=== PATIENT | female | born 1985 | race Caucasian/White ===

== ENCOUNTER 2016-04-09 12:07 | Emergency (ER) | payer MEDICAID, OTHER ==
[2016-04-09 14:04] VITALS: BP 115/88
[2016-04-09] MEDS ORDERED: Fluorescein Sodium TOPICAL* 1 MG TEST ONE (14:05)
[2016-04-09] MEDS ORDERED: BSS OPTH.SOL* BTL ONE (14:06)
[2016-04-09] MEDS ORDERED: Tetracaine 0.5% OPTH.SOL 4 ML* 1 DROP BTL ONE (14:06)
--- NOTE | 2016-04-09 14:43 | UC ---
Eye Complaint HPI - HPI Summary HPI Summary: 30 female presents today wearing sunglasses with bilateral eye irritation and burning that started approximately 2 weeks ago. Patient states she was seen in [facility] for what she believed to be pink eye. She was treated for pink eye with eye drops that she can not remember the name of. She states her eyes did not improve and the drops caused her to have a crusty discharge on her eyelashes. That has no resolved and her main complaint is burning of both eyes, redness, swelling and tenderness. Patient states over the past day or 2 she has been experiencing some blurry vision even when wearing her glasses. 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 She complains of light sensitivity. She has not had any visual loss. She has tried using OTC "clear eyes" for the past few days but has not had any relief. Denies any substance splashing into her eyes, burning, foreign body and anything getting into her eye such as lotions, soaps etc. She does not think she has been exposed to smoke. She denies itching, fever, chills, congestion, cough, purulent discharge, difficulty breathing and chest pain. - History of Current Complaint Chief Complaint: UCEye Stated Complaint: EYE COMPLAINT,SKIN COMPLAINT Time Seen by Provider: 04/09/16 14:22 Hx Obtained From: Patient Hx Last Menstrual Period: 03/14/16 ?: No Onset/Duration: Sudden Onset, Lasting Weeks - 2 weeks ago, Worse Since Timing: Constant Severity Initially: Mild Severity Currently: Moderate Pain Intensity: 8 Pain Scale Used: 0-10 Numeric Location of Injury: Conjunctiva, Eye Lid (lower), Eye Lid (upper), Sclera Character: Throbbing Aggravating Factor(s): Light Alleviating Factor(s): Nothing Associated Signs And Symptoms: Positive: Photophobia - bilateral, Drainage ( Clear) - bilateral, Vision Impairment Bilateral - no vision loss just some blurry vision, Swelling Related History: Meds/Drops Used: - antiobiotic drops and clear eyes OTC mosturizing drops - Allergies/Home Medications Allergies/Adverse Reactions: Allergies Allergy/AdvReac Type Severity Reaction Status Date / Time Tramadol Allergy Intermediate Rash Verified 04/09/16 13:57 PMH/Surg Hx/FS Hx/Imm Hx Endocrine History Of: Reports: Diabetes - diet controlled Cardiovascular History Of: Denies: Cardiac Disorders, Hypertension, Pacemaker/ICD, Myocardial Infarction , Congestive Heart Failure, Atrial Fibrillation, Deep Vein Thrombosis, Bleeding Disorders Respiratory History Of: Denies: COPD, Asthma, Bronchitis, Pneumonia, Pulmonary Embolism GI/ History Of: Denies: Gastroesophageal Reflux, Ulcer, Gastrointestinal Bleed, Gall Bladder Disease, Kidney Stones, Diverticulitis, Renal Disease, Urosepsis Neurological History Of: Denies: TIA, CVA, Dementia, Seizures, Migraine Psychological History Of: Reports: Anxiety - Surgical History Surgical History: Yes Surgery Procedure, Year, and Place: TUBAL LIGATION - Family History Known Family History: Positive: Other - Denies FMH of carpal tunnel - Social History Alcohol Use: Occasionally Substance Use Type: None Smoking Status (MU): Heavy Every Day Tobacco Smoker Type: Cigarettes Amount Used/How Often: 1 ppd Length of Time of Smoking/Using Tobacco: 16 YRS Have You Smoked in the Last Year: Yes - Immunization History Most Recent Influenza Vaccination: Fall 2014 Review of Systems Constitutional: Negative Skin: Negative Eyes: Blurred Vision, Drainage - clear, teary, Eye Redness - b/l, Photophobia - bilateral Respiratory: Negative Cardiovascular: Negative Gastrointestinal: Negative Genitourinary: Negative Motor: Negative Neurovascular: Negative Musculoskeletal: Negative Neurological: Headache Psychological: Negative All Other Systems Reviewed And Are Negative: Yes Physical Exam Triage Information Reviewed: Yes Appearance: Well-Appearing, Well-Nourished, Pain Distress - with sun glasses on and lights off Vital Signs: Initial Vital Signs Temp 97.7 F 04/09/16 13:58 Pulse 72 04/09/16 13:58 Resp 16 04/09/16 13:58 BP 115/88 04/09/16 13:58 Pulse Ox 100 04/09/16 13:58 Vital Signs Reviewed: Yes Eyes: Positive: Conjunctiva Inflamed, Discharge - clear, teary eyed, Other: - bilateral mild erythema, minimal swelling around orbits with some erythema, tender on palpation. no signs of foreign body. denied sensation of FB. some cobblestoning noted bilateral conjunctiva/ lower lids. PERRLA b/l. EOM intact and visual chen. fundoscopic exam done, no papilladema or hemorrhage noted. ENT Exam: Normal Neck: Positive: Supple, Nontender, No Lymphadenopathy Respiratory: Positive: Chest non-tender, Lungs clear, Normal breath sounds Cardiovascular: Positive: RRR, No Murmur, Pulses Normal Musculoskeletal Exam: Normal Neurological Exam: Normal Psychological Exam: Normal Skin Exam: Normal Eye Complaint Course/Dx - Course Course Of Treatment: appropriate physical exam was preformed. fluorescien stain did not seem appropriate at this time. she was instructed to stop using current OTC drops if there has been no relief. make an appointment with opthamologist - Differential Dx/Diagnosis Differential Diagnosis/HQI/PQRI: Conjunctivitis, Corneal Abrasion, Foreign Body , Orbital Cellulitis, Uveitis Provider Diagnoses: allergic conjunctivitis bilateral Discharge - Discharge Plan Condition: Stable Disposition: HOME Prescriptions: Olopatadine 0.1% OPHTH (NF) [Patanol 0.1% OPHTH (NF)] 1 drop BOTH EYES BID #1 btl Patient Education Materials: Conjunctivitis (ED) Forms: *Work Release Referrals: Anitha Best MD [Primary Care Provider] - Additional Instructions: Use drops as prescribed. You may also want to get Vasacon-A OTC eye drops to help. Please make an appointment with your eye doctor. If symptoms worsen, you experience loss of vision or do not improve please return to . Rest eyes and continue wearing sunglasses as needed for light sensitivity. You may continue use of ibuprofen as needed for pain.
== END 2016-04-09 15:02 | disposition home or self-care (01) ==
LOC: UCCORT 12:07
DX: H10.13 Acute atopic conjunctivitis, bilateral (principal); Z88.1 Allergy status to other antibiotic agents; F17.210 Nicotine dependence, cigarettes, uncomplicated
CPT/HCPCS: 99212; A9270-GY; G0463

== ENCOUNTER 2016-07-01 17:24 | Emergency (ER) | payer OTHER ==
[2016-07-01 18:42] VITALS: BP 104/67
[2016-07-01] MEDS ORDERED: HYDROcodone/ACETAMIN 5-325 MG* 1 TAB PO ONE (19:13)
[2016-07-01] MEDS ORDERED: predniSONE TAB* 20 MG PO ONE (19:14)
--- NOTE | 2016-07-01 19:23 | UC ---
Upper Extremity HPI - HPI Summary HPI Summary: More than 10 years ago was dx with carpal tunnel by Dr. Best. When it gets bad , she usually uses wrist braces. Typical symptoms are numbness, tingling, and nighttime worsening in the usual distribution. 2 days ago developed significant pain and swelling in both hands along with numbness and tingling, has never had so much pain before. Called into work today, stayed in bed all day from pain. - History of Current Complaint Stated Complaint: HANDS SWOLLEN Time Seen by Provider: 07/01/16 18:34 Hx Obtained From: Patient Hx Last Menstrual Period: 06/05/16 ?: No Onset/Duration: Gradual Onset, Lasting Days Severity Initially: Moderate Severity Currently: Severe Location Of Pain: Is Diffuse Character: Aching, Throbbing, Stiffness Aggravating Factor(s): Movement Alleviating Factor(s): Nothing Associated Signs And Symptoms: Positive: Swelling, Redness - Allergies/Home Medications Allergies/Adverse Reactions: Allergies Allergy/AdvReac Type Severity Reaction Status Date / Time Tramadol Allergy Intermediate Rash Verified 07/01/16 18:34 PMH/Surg Hx/FS Hx/Imm Hx Endocrine History Of: Reports: Diabetes - diet controlled Cardiovascular History Of: Denies: Cardiac Disorders, Hypertension, Pacemaker/ICD, Myocardial Infarction , Congestive Heart Failure, Atrial Fibrillation, Deep Vein Thrombosis, Bleeding Disorders Respiratory History Of: Denies: COPD, Asthma, Bronchitis, Pneumonia, Pulmonary Embolism GI/ History Of: Denies: Gastroesophageal Reflux, Ulcer, Gastrointestinal Bleed, Gall Bladder Disease, Kidney Stones, Diverticulitis, Renal Disease, Urosepsis Neurological History Of: Denies: TIA, CVA, Dementia, Seizures, Migraine Psychological History Of: Reports: Anxiety - Surgical History Surgical History: Yes Surgery Procedure, Year, and Place: TUBAL LIGATION - Family History Known Family History: Positive: Other - Denies FMH of carpal tunnel - Social History Occupation: Employed Full-time - [employer] Alcohol Use: Occasionally Substance Use Type: None Smoking Status (MU): Heavy Every Day Tobacco Smoker Type: Cigarettes Amount Used/How Often: 1 ppd Length of Time of Smoking/Using Tobacco: 16 YRS Have You Smoked in the Last Year: Yes Household Exposure Type: Cigarettes - Immunization History Most Recent Influenza Vaccination: Fall 2014 Review of Systems Constitutional: Negative Skin: Negative Eyes: Negative ENT: Negative Respiratory: Negative Cardiovascular: Negative Gastrointestinal: Negative Genitourinary: Negative Motor: Negative Neurovascular: Negative Musculoskeletal: Arthralgia, Decreased ROM Neurological: Negative Psychological: Negative All Other Systems Reviewed And Are Negative: Yes Physical Exam Triage Information Reviewed: Yes Appearance: Well-Appearing, Pain Distress - moderate -- tearful on exam, unable to move hands Vital Signs: Initial Vital Signs Temp 98.4 F 07/01/16 18:35 Pulse 94 07/01/16 18:35 Resp 18 07/01/16 18:35 BP 104/67 07/01/16 18:35 Pulse Ox 100 07/01/16 18:35 Vital Signs Reviewed: Yes Eye Exam: Normal Eyes: Positive: Conjunctiva Clear ENT Exam: Normal ENT: Positive: Normal ENT inspection, Hearing grossly normal, Pharynx normal, TMs normal Dental Exam: Normal Neck exam: Normal Neck: Positive: Supple, Nontender, No Lymphadenopathy Respiratory Exam: Normal Respiratory: Positive: Chest non-tender, Lungs clear, Normal breath sounds, No respiratory distress, No accessory muscle use Cardiovascular Exam: Normal Cardiovascular: Positive: RRR, No Murmur Musculoskeletal Exam: Other - bilat hands appear slightly swollen, joints red and swollen Musculoskeletal: Positive: Strength Limited @ - bilat hands, limited by pain, ROM Limited @ - bilat hands Neurological Exam: Normal Neurological: Positive: Alert Psychological Exam: Normal Upper Extremity Course/Dx - Differential Dx/Diagnosis Provider Diagnoses: Bilat hand arthritis. BUE carpal tunnel syndrome Discharge - Discharge Plan Condition: Stable Disposition: HOME Prescriptions: predniSONE TAB* [Deltasone TAB*] 10 mg PO DAILY #45 tab Patient Education Materials: Paresthesia (ED), Arthritis (ED) Forms: *Work Release Referrals: Anitha Best MD [Primary Care Provider] - As Soon As Possible Additional Instructions: As we discussed, your numbness and tingling are common for carpal tunnel. However, your pain, swelling, and distribution of symptoms look much more like an inflammatory arthritis. The most common cause would be an autoimmune condition such as rheumatoid arthritis. You will need further testing by your primary care office to help determine why you are in so much pain. In the mean time, the prednisone should help bring the pain down quickly.
== END 2016-07-01 19:33 | disposition home or self-care (01) ==
LOC: UCCORT 17:24
DX: M19.042 Primary osteoarthritis, left hand (principal); M19.041 Primary osteoarthritis, right hand; G56.03 Carpal tunnel syndrome, bilateral upper limbs; E11.9 Type 2 diabetes mellitus without complications; F41.9 Anxiety disorder, unspecified; Z88.5 Allergy status to narcotic agent; F17.210 Nicotine dependence, cigarettes, uncomplicated
CPT/HCPCS: 99212; G0463; J7512

== ENCOUNTER 2018-08-19 10:01 | Day surgery (SDC) | payer OTHER ==
[~2018-08-19 10:01] MED LIST: Buffered Lidocaine 1% SYRIN* 1 ML/SYRINGE INTRADERM ONE; Lactated Ringers 1000 ML Bag* 1,000 ML IV SCH
[2018-08-19] MEDS ORDERED: fentaNYL* 50 MCG/ML 2 ML VIAL (100 MCG VIAL) ONE ×2 (10:26→11:32)
[2018-08-19] MEDS ORDERED: Midazolam* 1 MG/ML 2 ML VIAL (2 MG) ONE (10:26)
[2018-08-19] MEDS ORDERED: Levalbuterol 0.63MG/3ML NEB* UNIT OF USE INH PRN (10:34)
[2018-08-19] MEDS ORDERED: diPHENhydraMINE IV* 50 MG/ML 1 ml VIAL (BENADRYL) IV PRN (10:34)
[2018-08-19] MEDS ORDERED: PROCHLORPERAZINE INJ 5 MG/ML 2 ML VIAL IV PRN (10:34)
[2018-08-19] MEDS ORDERED: Ondansetron INJ* 2 MG/ML VIAL IV PRN (10:34)
[2018-08-19] MEDS ORDERED: Naloxone* 0.4 MG/ML 1 ML VIAL IV PRN (10:34)
[2018-08-19] MEDS ORDERED: fentaNYL* 50 MCG/ML 2 ML VIAL (100 MCG VIAL) IV PRN (10:34)
[2018-08-19] MEDS ORDERED: DiMENhydriNATE IV* 50 MG/ML VIAL IV PUSH PRN (10:34)
[2018-08-19] MEDS ORDERED: Famotidine IV* 10 MG/ML 2 ML (20 mg) ONE (10:53)
[2018-08-19] MEDS ORDERED: Bupivacaine 0.25% SDV PF* 10 ML VIAL INJ ONE (11:02)
[2018-08-19] MEDS ORDERED: Propofol* 10 MG/ML 20 ML BTL ONE ×2 (11:22→11:33)
[2018-08-19] MEDS ORDERED: Dexamethasone IV* 4 MG/ML 1 ML (4 MG) ONE (11:22)
[2018-08-19] MEDS ORDERED: Lidocaine 2% PF * 5 ML VIAL ONE (11:22)
[2018-08-19] MEDS ORDERED: Ketorolac INJ* 30 MG/ML 1 ML VIAL ONE (11:22)
[2018-08-19] MEDS ORDERED: Acetaminophen TAB* 325 MG PO ONE (11:43)
[2018-08-19 12:52] VITALS: BP 110/73
--- NOTE | 2018-08-19 17:26 | OP ---
DATE OF OPERATION: 08/19/18 [facility] DATE OF : 89 SURGEON: Osvaldo Banegas MD. PHYSICAL DIRECTOR: SHAKEEL Bauman. ANESTHESIOLOGIST: Dr. Pardo. ANESTHESIA: General. PRE-OP DIAGNOSIS: Left wrist carpal tunnel syndrome. POST-OP DIAGNOSIS: Left wrist carpal tunnel syndrome. OPERATIVE PROCEDURE: Left endoscopic carpal tunnel release. INDICATIONS: Kady has significant carpal tunnel syndrome. We talked about treatment options. She wanted to proceed with carpal tunnel release. ESTIMATED BLOOD LOSS: 1 mL. COMPLICATIONS: None. FINDINGS: See above and below. DESCRIPTION OF PROCEDURE: Kady was seen in the preoperative holding area. The correct site, side, and procedure were identified. We came back to the operating room where the arm was prepped and draped in the usual fashion and a time-out was performed. The arm was exsanguinated with the Esmarch and the tourniquet was inflated to 225 mmHg. I made a 1 cm transverse incision just ulnar to the palmaris longus tendon and just proximal to the wrist flexion crease. Dissection was carried down. The distal antebrachial fascia was bluntly split transversely and then a 2-prong skin hook was placed. I used the synovial stripper followed by the dilators. The canal was dried out with a sterile Q-tip. I then placed the MicroAire endoscopic carpal tunnel system and once I had it in place, I pulled the trigger to elevate the blade. The release was carried out from distal to proximal in standard fashion. I released the distal aspect first. I confirmed the release prior to releasing the most proximal aspect of the ligament. I then placed a Jostin retractor and placed the camera back into the carpal tunnel to make sure everything looked good. I then released the distal antebrachial fascia proximally. Everything was looking good, so we irrigated out the wound. Skin was closed with 4-0 Monocryl suture and a Steri-Strip. Marcaine was infiltrated around the periphery of the area. A soft dressing was applied. Tourniquet was deflated and she was taken to the recovery room in stable condition. [id number]/[facility] #: [id number] [facility]OTSDAM HOSPITALGurwinder
== END 2018-08-19 13:00 | disposition home or self-care (01) ==
LOC: OREAST 10:01
PROVIDERS: ATTEND Orthopaedic Surgery Hand Surgery
DX: G56.02 Carpal tunnel syndrome, left upper limb (principal); F41.8 Other specified anxiety disorders; F17.210 Nicotine dependence, cigarettes, uncomplicated; K21.9 Gastro-esophageal reflux disease without esophagitis; E11.9 Type 2 diabetes mellitus without complications
CPT/HCPCS: J1100; J1885; J2250; J2704; J3010; J3490

== ENCOUNTER 2018-09-09 10:09 | Day surgery (SDC) | payer OTHER ==
[~2018-09-09 10:09] MED LIST changes: +Sodium Citrate/Citric Acid* 15 ML UDC PO ONE
[2018-09-09] MEDS ORDERED: Sodium Citrate/Citric Acid* 15 ML UDC ONE (10:31)
[2018-09-09] MEDS ORDERED: Naloxone* 0.4 MG/ML 1 ML VIAL IV PRN (10:39)
[2018-09-09] MEDS ORDERED: Ketorolac INJ* 30 MG/ML 1 ML VIAL IV PRN (10:39)
[2018-09-09] MEDS ORDERED: Ondansetron INJ* 2 MG/ML VIAL IV PRN (10:39)
[2018-09-09] MEDS ORDERED: Lidocaine 2% PF * 5 ML VIAL ONE (10:44)
[2018-09-09] MEDS ORDERED: fentaNYL* 50 MCG/ML 2 ML VIAL (100 MCG VIAL) ONE ×2 (10:44→11:55)
[2018-09-09] MEDS ORDERED: Propofol* 10 MG/ML 20 ML BTL ONE (10:44)
[2018-09-09] MEDS ORDERED: Ketorolac INJ* 30 MG/ML 1 ML VIAL ONE (11:40)
[2018-09-09] MEDS ORDERED: Bupivacaine 0.25% SDV PF* 10 ML VIAL INJ ONE (11:46)
[2018-09-09] MEDS: fentaNYL* 50 MCG/ML 2 ML VIAL (100 MCG VIAL) IV PRN ×2 (11:58→12:05)
[2018-09-09] MEDS ORDERED: Acetaminophen TAB* 325 MG ONE (12:23)
[2018-09-09] MEDS ORDERED: Codeine TAB* 30 MG ONE (12:23)
[2018-09-09 12:40] VITALS: BP 98/75
--- NOTE | 2018-09-09 12:45 | OP ---
DATE OF OPERATION: 09/09/18 [facility] DATE OF : 89 SURGEON: Osvaldo Banegas MD BINDER TECHNICIAN: SHAKEEL Velazco ANESTHESIOLOGIST: Dr. Dowell. ANESTHESIA: General. PRE-OP DIAGNOSIS: Right carpal tunnel syndrome. POST-OP DIAGNOSIS: Right carpal tunnel syndrome. OPERATIVE PROCEDURE: Right endoscopic carpal tunnel release. INDICATIONS: Kady has carpal tunnel syndrome. We talked about the treatment options, and she wanted to proceed. She understands the risks associated with the procedure. ESTIMATED BLOOD LOSS: 2 mL. COMPLICATIONS: None. FINDINGS: See above and below. DESCRIPTION OF PROCEDURE: Kady was seen in the preoperative holding area. The correct site, side, and procedure were identified. We came back to the operating room. The arm was prepped and draped in the usual fashion and a time- out was performed. The arm was exsanguinated with the Esmarch and the tourniquet was inflated to 250 mmHg. I made a 1 cm transverse incision just ulnar to the palmaris longus tendon and proximal to the wrist flexion crease. Dissection was carried down. The distal antebrachial fascia was split transversely, bluntly with the tenotomy scissors. A 2-prong skin hook was placed. A synovial stripper followed by the dilators and a Q- tip were introduced. The MicroAire endoscopic carpal tunnel device was introduced and under direct visualization, the transverse carpal ligament was released just off the radial aspect of the hook of the hamate. Once I completed the release from distal to proximal, I placed a Jostin retractor and confirmed the release. Everything was looking good. The distal antebrachial fascia proximally was released. The wound was irrigated out and closed with a 4-0 Monocryl suture. 0.25% plain Marcaine was infiltrated. Soft dressing was applied and she was taken to the recovery room in stable condition. [id number]/[facility] #: [id number] [facility]
== END 2018-09-09 12:55 | disposition home or self-care (01) ==
LOC: OREAST 10:09
PROVIDERS: ATTEND Orthopaedic Surgery Hand Surgery
DX: G56.01 Carpal tunnel syndrome, right upper limb (principal); Z72.0 Tobacco use; F41.8 Other specified anxiety disorders; E11.9 Type 2 diabetes mellitus without complications
CPT/HCPCS: A9270-GY; J1885; J2704; J3010; J3490